=== PATIENT | female | born 1970 | race Caucasian/White ===

== ENCOUNTER 2017-04-25 22:10 | Inpatient (IN) | payer BC ==
[~2017-04-25] VITALS: Ht 165.1 cm; Wt 109.3 kg
[~2017-04-25 22:10] MED LIST: CHEWABLE-VITE1 EACH PO; CLARITIN-D 121 EACH PO; DICLOFENAC SOD100 G1 TP; DURAGESIC25 MCG TD; FLOMAX0.4 MG PO; MOBIC7.5 MG PO; MOTRIN400 MG PO; NAPROXEN500 MG PO; PERCOCET 5/31 TABLET PO; PERCOCET 7.51 TABLET PO; RAPAFLO8 MG PO; TESSALON PERLE100 MG PO; TORADOL10 MG PO; TYLENOL EXTRA500 MG PO; ZOFRAN ODT4 MG PO
[2017-04-26 07:08] VITALS: BP 139/88
[2017-04-26 07:16] VITALS: BP 139/88
[2017-04-26] MEDS ORDERED: DIAZEPAM5 MG PO (07:26)
[2017-04-27 00:11] VITALS: BP 102/63
[2017-04-27 04:43] VITALS: BP 110/57
[2017-04-27 08:35] VITALS: BP 125/69
[2017-04-27 12:12] VITALS: BP 103/56
[2017-04-27] MEDS ORDERED: PERCOCET 7.51 TABLET PO (16:29)
[2017-04-27] MEDS ORDERED: CYCLOBENZAPRINE10 MG PO (16:29)
[2017-04-27 16:30] VITALS: BP 121/79
[2017-04-27] MEDS ORDERED: OXYCODONE-APAP1 EAC6 PO (16:56)
== END 2017-04-27 17:34 | disposition home or self-care (01) | DRG 460 ==
LOC: ENRESERV 22:10 → 2SOUTH 04-26 06:13 → EDSTATUS 04-26 09:03 → 2SOUTH 04-26 09:06 → SDC 04-26 15:25 → ENRESERV 04-26 15:27 → 2SOUTH 04-26 16:23 → 3EAST 04-26 16:39
PROC: 0SG30A1 (ICD-10-PCS; principal; 2017-04-26)
DX: M43.17 Spondylolisthesis, lumbosacral region (principal); E66.9 Obesity, unspecified; M40.46 Postural lordosis, lumbar region; M51.16 Intervertebral disc disorders with radiculopathy, lumbar region; Z68.37 Body mass index [BMI] 37.0-37.9, adult; M51.36 Other intervertebral disc degeneration, lumbar region; F17.200 Nicotine dependence, unspecified, uncomplicated; M46.86 Other specified inflammatory spondylopathies, lumbar region; M47.27 Other spondylosis with radiculopathy, lumbosacral region; M43.16 Spondylolisthesis, lumbar region; G47.9 Sleep disorder, unspecified; M62.81 Muscle weakness (generalized)
CPT/HCPCS: 72020; 72100; 76000; 86900; 86901; 94799; J0330; J0690; J1100; J1170; J1580; J2250; J2405; J2710; J2930; J3010; J3370; J3480; S0020

== ENCOUNTER 2017-08-18 19:30 | Emergency (ER) | payer BC ==
[~2017-08-18] VITALS: Ht 172.7 cm; Wt 110.3 kg
[~2017-08-18 19:30] MED LIST changes: +CYCLOBENZAPRINE10 MG PO; +DIAZEPAM5 MG PO; +OXYCODONE-APAP1 EAC6 PO
[2017-08-18 19:37] VITALS: BP 160/104
[2017-08-18 20:17] LABS: HEMATOCRIT 39.8 % (36.0-46.0); MCH 29.8 PG (29.0-34.0); MCHC 33.2 G/DL (30.0-36.0); MCV 89.8 FL (83-99); MEAN PLAT.VOLUME 10.4 uM^3 (9.5-12.4); PLATELET COUNT 319 K/uL (156-360); RBC DIS.WIDTH-CV 13.8 % (11.8-14.6); RBC DIS.WIDTH-SD 45.1 % (39-53); RED BLOOD COUNT 4.43 M/uL (3.80-5.20); WHITE BLOOD COUNT 14.9 K/uL (4.1-10.2)
[2017-08-18 20:26] LABS: CHLORIDE 107 mEq/L (99-109); POTASSIUM 3.9 mEq/L (3.7-5.4); SODIUM 139 mEq/L (136-147)
[2017-08-18 20:28] LABS: GLUCOSE 146 mg/dL (70-99)
[2017-08-18 20:30] LABS: ANION GAP 10 MEQ/L (2-14); TOTAL BILIRUBIN 0.1 mg/dL (0.0-1.0)
[2017-08-18 20:32] LABS: ALKALINE PHOSPHATASE 85 IU/L (3-129); GFR ESTIMATE (CALCULATED) > 59 mL/min/
[2017-08-18 20:33] LABS: UREA NITROGEN (BUN) 12 mg/dL (9-23)
[2017-08-18] MEDS ORDERED: TESSALON PERLE100 MG PO (21:23)
[2017-08-18] MEDS ORDERED: PHENERGAN-CODE120 ML PO (21:23)
== END 2017-08-18 21:32 | disposition home or self-care (01) ==
LOC: EME 19:30
DX: J20.9 Acute bronchitis, unspecified (principal); E78.00 Pure hypercholesterolemia, unspecified; E11.9 Type 2 diabetes mellitus without complications; F17.200 Nicotine dependence, unspecified, uncomplicated; Z88.5 Allergy status to narcotic agent; Z88.6 Allergy status to analgesic agent
CPT/HCPCS: 71020; 80053; 85027; 94640; 99281; 99284